=== PATIENT | male | born 1935 | race Caucasian/White ===

== ENCOUNTER 2019-04-25 07:22 | Day surgery (SDC) | payer MEDICARE, BC ==
[2019-04-20 16:10] VITALS: BMI 28.7
[~2019-04-25 07:22] MED LIST: LACTATED RINGERS 1,000 ML IV SCH; LIDOCAINE 1% 20 ML VIAL (10MG/ML) FOR IV START INTRADERMA PRN
[2019-04-25 07:36] VITALS: TEMP 97
[2019-04-25 07:46] LABS: Glucose,Whole Blood 94 mg/dL (75-99)
--- NOTE | 2019-04-25 07:50 | P.GSHP ---
History of Present Illness H&P Date: 04/25/19 CHIEF COMPLAINT: GERD HISTORY OF PRESENT ILLNESS: The patient is a 83-year-old male who presents reports gastroesophageal reflux disease. Upper endoscopy was offered for further evaluation and management. PAST MEDICAL HISTORY: Please see list. PAST SURGICAL HISTORY: Please see list. MEDICATIONS: Please see list. ALLERGIES: Please see list. SOCIAL HISTORY: No illicit drug use FAMILY HISTORY: No reports of Crohn disease or ulcerative colitis. REVIEW OF ORGAN SYSTEMS: CONSTITUTIONAL: No reports of fevers or chills. GI: Denies any blood in stools or constipation. PHYSICAL EXAM: VITAL SIGNS: Stable GENERAL: Well-developed and pleasant in no acute distress. HEENT: No scleral icterus. Extraocular movements grossly intact. Moist buccal mucosa. NECK: Supple without lymphadenopathy. CHEST: Unlabored respirations. Equal bilateral excursions. CARDIOVASCULAR: Regular rate and rhythm. Distal 2+ pulses. ABDOMEN: Soft, nondistended. MUSCULOSKELETAL: No clubbing, cyanosis, or edema. ASSESSMENT: 1. Gastroesophageal reflux disease PLAN: 1. Recommend proceeding with an upper endoscopy Past Medical History Past Medical History: Diabetes Mellitus, GERD/Reflux, Hyperlipidemia, Myocardial Infarction ([place]), Osteoarthritis (OA) Additional Past Medical History / Comment(s): diet controlled diabetes Last Myocardial Infarction Date:: 2015 History of Any Multi-Drug Resistant Organisms: None Reported Past Surgical History: Heart Catheterization With Stent Additional Past Surgical History / Comment(s): eye surgery, toenails, cataracts, stomach surg. EGD Past Anesthesia/Blood Transfusion Reactions: No Reported Reaction Date of Last Stent Placement:: 2015 Smoking Status: Never smoker - Past Family History Mother Family Medical History: No Reported History Medications and Allergies Home Medications Medication Instructions Recorded Confirmed Type Aspirin [Adult Low Dose Aspirin EC] 81 mg PO DAILY 10/04/16 04/25/19 History Cholecalciferol [Vitamin D3] 2,000 unit PO DAILY 10/04/16 04/25/19 History Gabapentin [Neurontin] 300 mg PO QAM 10/04/16 04/25/19 History Gabapentin [Neurontin] 600 mg PO HS 10/04/16 04/25/19 History Loratadine [Claritin] 10 mg PO DAILY 04/20/19 04/25/19 History Mag Carb/Aluminum Hydrox/Algin 1 dose PO DAILY PRN 04/20/19 04/25/19 History [Gaviscon Liquid] guaiFENesin-DM 600/30MG [Mucinex 1 each PO Q12HR 04/20/19 04/25/19 History Dm] Allergies Allergy/AdvReac Type Severity Reaction Status Date / Time venom-honey bee Allergy Swelling Verified 04/25/19 07:33 [bee venom (honey bee)] Surgical - Exam Vital Signs Temp Pulse Resp BP Pulse Ox 97 F L 64 16 161/84 99 04/25/19 07:36 04/25/19 07:36 04/25/19 07:36 04/25/19 07:36 04/25/19 07:36
[2019-04-25] MEDS ORDERED: PROPOFOL 10 MG/ML 20 ML VIAL IV ONE (07:55)
[2019-04-25] MEDS ORDERED: LIDOCAINE 1% INJ 10MG/ML (20 ML MDV) ONE (07:55)
--- NOTE | 2019-04-25 08:18 | P.PCN ---
Date of Procedure: 04/25/19 Description of Procedure: PREOPERATIVE DIAGNOSIS: Dysphagia. Gastroesophageal reflux disease History of Tyler fundoplication Upper esophageal sphincter hypertension POSTOPERATIVE DIAGNOSIS: Dysphagia. 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 Esophagogastroduodenoscopy with cold forceps biopsies gastric body SURGEON: Gloria Reynolds MD ANESTHESIA: MAC. INDICATIONS: The patient is a 84-year-old male who presents with a history of dysphagia. He reports trouble swallowing her pills. Benefits and risks of the procedure were described. Informed consent was obtained. DESCRIPTION: The patient was brought into the endoscopy suite and laid in the left lateral decubitus position. After a timeout was confirmed, the procedure was initiated. Tertiary contractions along the proximal portion of the esophagus was identified. An Olympus gastroscope was passed and the stomach was entered. Moderate gastritis was identified. The scope was advanced to the duodenum which was unremarkable. Retroflexion the scope confirmed a Hill grade 4 lower esophageal valve. Next using an Surinamese rigid dilator, a guidewire was placed through the pediatric gastroscope. Next the scope was withdrawn. A 51-[place] rigid [place]amese dilator was passed carefully along the posterior oropharynx to 60 cm and left in place for 2 minutes stretch. The dilator was withdrawn including the guidewire. The scope was reentered along the posterior oropharynx with no findings of full-thickness tear of the upper esophageal sphincter. Moderate gastritis without bleeding was found along the gastric body with cold forceps biopsy obtained. Separately, gastroesophageal junction ulcer chronic 4 mm identified. No full-thickness injury was encountered. The GI tract was desufflated. The patient tolerated the procedure well. FINDINGS: Squamocolumnar junction unremarkable at 40 cm. Tertiary contractions throughout this esophagus consistent with esophageal dysmotility Surinamese rigid dilator 51-[place]er completed. Esophageal junction ulcer 4 mm Moderate gastritis gastric body biopsies obtained Hill grade 4 lower esophageal valve. LA grade A esophagitis. RECOMMENDATIONS: Upper endoscopy as needed Plan - Discharge Summary Discharge Rx Participant: No New Discharge Prescriptions: No Action Cholecalciferol [Vitamin D3] 2,000 unit PO DAILY Gabapentin [Neurontin] 400 mg PO QAM Gabapentin [Neurontin] 600 mg PO HS Aspirin [Adult Low Dose Aspirin EC] 81 mg PO DAILY guaiFENesin-DM 600/30MG [Mucinex Dm] 1 each PO Q12HR Loratadine [Claritin] 10 mg PO DAILY Mag Carb/Aluminum Hydrox/Algin [Gaviscon Liquid] 1 dose PO DAILY PRN PRN Reason: Heartburn Dorzolamide-Timol 2.23%/0.68% [Cosopt] 1 drop LEFT EYE BID Fluorometholone 0.1% Ophth Katelin [Fml] 1 drops LEFT EYE DAILY Loratadine [Claritin] 10 mg PO DAILY Tamsulosin [Flomax] 0.4 mg PO DAILY Albuterol Sulfate [Proair Hfa] 1 - 2 puff INHALATION Q6HR PRN PRN Reason: Shortness Of Breath Discharge Medication List Aspirin [Adult Low Dose Aspirin EC] 81 mg PO DAILY 10/04/16 [History] Cholecalciferol [Vitamin D3] 2,000 unit PO DAILY 10/04/16 [History] Gabapentin [Neurontin] 400 mg PO QAM 10/04/16 [History] Gabapentin [Neurontin] 600 mg PO HS 10/04/16 [History] Loratadine [Claritin] 10 mg PO DAILY 04/20/19 [History] Mag Carb/Aluminum Hydrox/Algin [Gaviscon Liquid] 1 dose PO DAILY PRN 04/20/19 [History] guaiFENesin-DM 600/30MG [Mucinex Dm] 1 each PO Q12HR 04/20/19 [History] Albuterol Sulfate [Proair Hfa] 1 - 2 puff INHALATION Q6HR PRN 04/25/19 [History] Dorzolamide-Timol 2.23%/0.68% [Cosopt] 1 drop LEFT EYE BID 04/25/19 [History] Fluorometholone 0.1% Ophth Katelin [Fml] 1 drops LEFT EYE DAILY 04/25/19 [History] Loratadine [Claritin] 10 mg PO DAILY 04/25/19 [History] Tamsulosin [Flomax] 0.4 mg PO DAILY 04/25/19 [History] Follow up Appointment(s)/Referral(s): Gloria Reynolds MD [STAFF PHYSICIAN] - 05/08/19 Patient Instructions/Handouts: Peptic Ulcer (DC), Gastritis (DC), Gastroesophageal Reflux Disease (DC), Esophageal Dilation (DC) Activity/Diet/Wound Care/Special Instructions: Diet as tolerated Discharge Disposition: HOME SELF-CARE
[2019-04-25 08:35] VITALS: BP 123/69; PULSE 61; RESP 16
== END 2019-04-25 09:01 | disposition home or self-care (01) ==
LOC: ORWHC2ENDO 07:22
PROVIDERS: ATTEND Surgery Plastic and Reconstructive Surgery
DX: K22.8 Other specified diseases of esophagus (principal); K29.70 Gastritis, unspecified, without bleeding; K21.0 Gastro-esophageal reflux disease with esophagitis; E11.9 Type 2 diabetes mellitus without complications; I25.10 Atherosclerotic heart disease of native coronary artery without angina pectoris; E78.5 Hyperlipidemia, unspecified; I25.2 Old myocardial infarction; M19.90 Unspecified osteoarthritis, unspecified site; Z79.82 Long term (current) use of aspirin; Z79.899 Other long term (current) drug therapy; Z91.030 Bee allergy status
CPT/HCPCS: 88305; 43239; 43249; J2001; J2704

== ENCOUNTER 2021-04-15 07:35 | Day surgery (SDC) | payer MEDICARE, BC ==
[2021-04-13 11:26] VITALS: BMI 29.7
[~2021-04-15 07:35] MED LIST changes: -LIDOCAINE 1% 20 ML VIAL (10MG/ML) FOR IV START INTRADERMA PRN
--- NOTE | 2021-04-15 08:35 | P.GSHP ---
History of Present Illness H&P Date: 04/15/21 CHIEF COMPLAINT: GERD HISTORY OF PRESENT ILLNESS: The patient is a 85-year-old male who presents reports gastroesophageal reflux disease. Upper endoscopy was offered for further evaluation and management. PAST MEDICAL HISTORY: Please see list. PAST SURGICAL HISTORY: Please see list. MEDICATIONS: Please see list. ALLERGIES: Please see list. SOCIAL HISTORY: No illicit drug use FAMILY HISTORY: No reports of Crohn disease or ulcerative colitis. REVIEW OF ORGAN SYSTEMS: CONSTITUTIONAL: No reports of fevers or chills. GI: Denies any blood in stools or constipation. PHYSICAL EXAM: VITAL SIGNS: Stable GENERAL: Well-developed and pleasant in no acute distress. HEENT: No scleral icterus. Extraocular movements grossly intact. Moist buccal mucosa. NECK: Supple without lymphadenopathy. CHEST: Unlabored respirations. Equal bilateral excursions. CARDIOVASCULAR: Regular rate and rhythm. Distal 2+ pulses. ABDOMEN: Soft, nondistended. MUSCULOSKELETAL: No clubbing, cyanosis, or edema. ASSESSMENT: 1. Gastroesophageal reflux disease PLAN: 1. Recommend proceeding with an upper endoscopy Past Medical History Past Medical History: Diabetes Mellitus, GERD/Reflux, Hyperlipidemia, Hypertension, Myocardial Infarction ([place]), Osteoarthritis (OA) Additional Past Medical History / Comment(s): "having problems like before with swallowing",Received both Pfizer vaccines,diet controlled diabetes,had covid December 2020 Last Myocardial Infarction Date:: 2015 History of Any Multi-Drug Resistant Organisms: None Reported Past Surgical History: AICD, Heart Catheterization With Stent Additional Past Surgical History / Comment(s): eye surgery, toenails, cataracts, stomach surg. EGD, PENILE IMPLANT Past Anesthesia/Blood Transfusion Reactions: No Reported Reaction Date of Last Stent Placement:: 2015 Type of Cardiac Device: AICD Device Placement Date:: 2018 Smoking Status: Never smoker - Past Family History Mother Family Medical History: No Reported History Medications and Allergies Home Medications Medication Instructions Recorded Confirmed Type Aspirin [Adult Low Dose Aspirin EC] 81 mg PO DAILY 10/04/16 04/13/21 History Gabapentin [Neurontin] 400 mg PO QAM 10/04/16 04/13/21 History Dorzolamide-Timol 2.23%/0.68% 1 drop LEFT EYE BID 04/25/19 04/13/21 History [Cosopt] Fluorometholone 0.1% Ophth Katelin 1 drops LEFT EYE DAILY 04/25/19 04/13/21 History [Fml] Omeprazole 40 mg PO DAILY #90 capsule. 04/25/19 04/13/21 Rx Acetaminophen [Tylenol Arthritis] 650 mg PO DAILY PRN 03/26/21 04/13/21 History Dofetilide [Tikosyn] 250 mcg PO Q12HR 03/26/21 04/13/21 History Leg Cramp Pills 1 tab PO DAILY PRN 03/26/21 04/13/21 History Metoprolol Tartrate [Lopressor] 25 mg PO QAM 03/26/21 04/13/21 History Multivitamins, Thera [Multivitamin 1 tab PO DAILY 03/26/21 04/13/21 History (formulary)] Allergy Medicine 1 tab PO QAM 04/13/21 04/13/21 History Allergies Allergy/AdvReac Type Severity Reaction Status Date / Time venom-honey bee Allergy Swelling Verified 04/15/21 08:33 [bee venom (honey bee)]
[2021-04-15 08:38] VITALS: TEMP 97.6
[2021-04-15 08:41] LABS: Glucose,Whole Blood 92 mg/dL (75-99)
[2021-04-15] MEDS ORDERED: LIDOCAINE 1% INJ 10MG/ML (20 ML MDV) ONE (08:43)
[2021-04-15] MEDS ORDERED: PROPOFOL 10 MG/ML 20 ML VIAL IV ONE (08:43)
[2021-04-15 09:06] VITALS: RESP 12
--- NOTE | 2021-04-15 09:07 | P.PCN ---
Date of Procedure: 04/15/21 Description of Procedure: PREOPERATIVE DIAGNOSIS: Dysphagia. Gastroesophageal reflux disease Esophageal stricture POSTOPERATIVE DIAGNOSIS: Dysphagia. Gastroesophageal reflux disease Esophageal stricture Recurrent diaphragmatic hiatal hernia Presbyesophagus OPERATION: Esophagogastroduodenoscopy with rigid dilator over the guidewire 57 Fr. SURGEON: Gloria Reynolds MD ANESTHESIA: MAC. INDICATIONS: The patient is a 85-year-old male who presents with a history of dysphagia. Benefits and risks of the procedure were described. Informed consent was obtained. DESCRIPTION: The patient was brought into the endoscopy suite and laid in the left lateral decubitus position. After a timeout was confirmed, the procedure was initiated. An Olympus gastroscope was passed and the stomach was entered. Mild gastritis was identified. The scope was advanced to the duodenum which was unremarkable. Retroflexion the scope confirmed a Hill grade 4 lower esophageal valve. Next using an Afghan rigid dilator, a guidewire was placed through the pediatric gastroscope. Next the scope was withdrawn. A 57-[place] rigid Afghan dilator was passed carefully along the posterior oropharynx to 50 cm and left in place for 2-3 minutes stretch. The dilator was withdrawn including the guidewire. The scope was reentered along the posterior oropharynx with no findings of full-thickness tear of the upper esophageal sphincter. No full-thickness injury was encountered. The GI tract was desufflated. The p atient tolerated the procedure well. FINDINGS: Diffuse esophageal stenosis with presbyesophagus Squamocolumnar junction unremarkable Afghan rigid dilator 57-[place] completed. Recurrent hiatus hernia, 3 cm No diffuse gastritis Hill grade 4 lower esophageal valve. LA grade A esophagitis. RECOMMENDATIONS: Upper endoscopy as needed Continue Omeprazole 40 mg daily Plan - Discharge Summary Discharge Rx Participant: No New Discharge Prescriptions: Continue Gabapentin [Neurontin] 400 mg PO QAM Aspirin [Adult Low Dose Aspirin EC] 81 mg PO DAILY Dorzolamide-Timol 2.23%/0.68% [Cosopt] 1 drop LEFT EYE BID Fluorometholone 0.1% Ophth Katelin [Fml] 1 drops LEFT EYE DAILY Omeprazole 40 mg PO DAILY #90 capsule Leg Cramp Pills 1 tab PO DAILY PRN PRN Reason: LEG CRAMPS Acetaminophen [Tylenol Arthritis] 650 mg PO DAILY PRN PRN Reason: Pain Multivitamins, Thera [Multivitamin (formulary)] 1 tab PO DAILY Metoprolol Tartrate [Lopressor] 25 mg PO QAM Dofetilide [Tikosyn] 250 mcg PO Q12HR Allergy Medicine 1 tab PO QAM Discharge Medication List Aspirin [Adult Low Dose Aspirin EC] 81 mg PO DAILY 10/04/16 [History] Gabapentin [Neurontin] 400 mg PO QAM 10/04/16 [History] Dorzolamide-Timol 2.23%/0.68% [Cosopt] 1 drop LEFT EYE BID 04/25/19 [History] Fluorometholone 0.1% Ophth Katelin [Fml] 1 drops LEFT EYE DAILY 04/25/19 [History] Omeprazole 40 mg PO DAILY #90 capsule. 04/25/19 [Rx] Acetaminophen [Tylenol Arthritis] 650 mg PO DAILY PRN 03/26/21 [History] Dofetilide [Tikosyn] 250 mcg PO Q12HR 03/26/21 [History] Leg Cramp Pills 1 tab PO DAILY PRN 03/26/21 [History] Metoprolol Tartrate [Lopressor] 25 mg PO QAM 03/26/21 [History] Multivitamins, Thera [Multivitamin (formulary)] 1 tab PO DAILY 03/26/21 [History] Allergy Medicine 1 tab PO QAM 04/13/21 [History] Follow up Appointment(s)/Referral(s): Gloria Reynolds MD [STAFF PHYSICIAN] - 04/28/21 Patient Instructions/Handouts: Esophageal Dilation (DC) Activity/Diet/Wound Care/Special Instructions: Diet as tolerated. Expect dark stools for 2 days. Discharge Disposition: HOME SELF-CARE
[2021-04-15 09:22] VITALS: PULSE 61
[2021-04-15 09:33] VITALS: BP 169/81
== END 2021-04-15 10:04 | disposition home or self-care (01) ==
LOC: ORWHC2ENDO 07:35
PROVIDERS: ATTEND Surgery Plastic and Reconstructive Surgery
DX: K22.2 Esophageal obstruction (principal); K29.70 Gastritis, unspecified, without bleeding; K44.9 Diaphragmatic hernia without obstruction or gangrene; K21.00 Gastro-esophageal reflux disease with esophagitis, without bleeding; I25.10 Atherosclerotic heart disease of native coronary artery without angina pectoris; E11.9 Type 2 diabetes mellitus without complications; I10 Essential (primary) hypertension; E78.5 Hyperlipidemia, unspecified; I25.2 Old myocardial infarction; Z95.810 Presence of automatic (implantable) cardiac defibrillator; Z95.5 Presence of coronary angioplasty implant and graft; Z98.49 Cataract extraction status, unspecified eye; Z98.890 Other specified postprocedural states; Z96.0 Presence of urogenital implants; Z79.82 Long term (current) use of aspirin; Z79.899 Other long term (current) drug therapy; Z91.030 Bee allergy status
CPT/HCPCS: 43248; J2001; J2704; 43249